=== PATIENT | female | born 1995 | race Hispanic/Latino ===

== ENCOUNTER 2022-02-18 14:45 | Inpatient (IN) | payer OTHER ==
[~2022-02-18] VITALS: Ht 162.6 cm; Wt 77.1 kg
[2022-02-18 17:23] LABS: BASOPHILS % (AUTO) 0.8 % (0.0-5.0); EOSINOPHILS % (AUTO) 1.3 % (0.0-8.0); HEMATOCRIT 40.2 % (36-48); LYMPHOCYTES % (AUTO) 28.4 % (21.0-51.0); MEAN CORPUSCULAR HEMOGLOBIN 25.2 pg (27.0-33.0); MEAN CORPUSCULAR HGB CONC 31.8 g/dL (32.0-36.0); MEAN CORPUSCULAR VOLUME 79.1 fL (79-99); MONOCYTES % (AUTO) 9.8 % (3.0-13.0); NEUTROPHILS % (AUTO) 59.4 % (40.0-77.0); PLATELET COUNT (AUTO) 345 K/uL (130-400); RED BLOOD CELL COUNT(AUTO) 5.08 MIL/uL (4.00-5.50); RED CELL DISTRIBUTION WIDTH 16.7 % (11.0-15.5); WHITE BLOOD COUNT (AUTO) 6.2 K/uL (4.8-10.8)
[2022-02-18 17:24] LABS: APPEARANCE,URINE CLEAR (CLEAR); BILIRUBIN,URINE 0.5 mg/dL (NEGATIVE); COLOR,URINE YELLOW (YELLOW); GLUCOSE, URINE (UA) NEGATIVE (NEGATIVE); KETONES,URINE 10 mg/dL (NEGATIVE); LEUKOCYTE ESTERASE ,URINE 250 Leu/uL (NEGATIVE); NITRATE,URINE NEGATIVE (NEGATIVE); OCCULT BLOOD,URINE LARGE (NEGATIVE); PH,URINE 5.5 (5.0-8.0); PROTEIN,URINE NEGATIVE (NEGATIVE); UROBILINOGEN,URINE 0.2 mg/dL (0.2-1.0)
[2022-02-18 17:27] LABS: HCG,QUALITATIVE URINE NEGATIVE (NEGATIVE)
[2022-02-18 17:28] LABS: CREATININE 0.8 mg/dL (0.5-1.5); POTASSIUM 3.5 mmol/L (3.5-5.1)
[2022-02-18] MEDS ORDERED: ONDANSETRON 4MG INJ IVP ONE (17:30)
[2022-02-18] MEDS ORDERED: MORPHINE 4 MG SYG IVP ONE (17:30)
[2022-02-18] MEDS ORDERED: 0.9%NACL 1000ML 1,000 ML IV ONE (17:30)
[2022-02-18 17:32] LABS: ALBUMIN 4.3 g/dL (3.5-5.0); TOTAL PROTEIN, SERUM 8.6 g/dL (6.0-8.3)
[2022-02-18 17:33] LABS: BACTERIA,URINE RARE /HPF (None Seen); MUCUS,URINE RARE LPF (None Seen); SQUAMOUS EPITHELIAL CELL,UR FEW /HPF (0-2)
[2022-02-18] MEDS ORDERED: IOHEXOL 350 MG/ML 100ML INFUS..BTL IV ONE (18:26)
[2022-02-18] MEDS ORDERED: ONDANSETRON 4MG INJ IV PRN (20:00)
[2022-02-18] MEDS ORDERED: NITROGLYCERIN 0.4 MG SL TAB SL PRN (20:00)
[2022-02-18 20:28] LABS: HEMOGLOBIN A1C 5.1 % (4.0-6.0)
[2022-02-18] MEDS: FAMOTIDINE 20MG VIAL IV SCH (20:29)
[2022-02-18] MEDS: LACTATED RINGERS 1000ML 1,000 ML IV SCH (20:29)
[2022-02-18] MEDS: MORPHINE 2 MG SYG IV PRN (22:37)
[2022-02-18 23:16] VITALS: BP 97/68
[2022-02-18 23:30] LABS: AMPHET/METH SCREEN,URINE NEGATIVE (NEGATIVE); BARBITURATE SCREEN, URINE NEGATIVE (NEGATIVE); BENZODIAZEPINES SCREEN,URINE NEGATIVE (NEGATIVE); CANNABINOID SCREEN,URINE NEGATIVE (NEGATIVE); COCAINE SCREEN,URINE NEGATIVE (NEGATIVE); PHENCYCLIDINE SCREEN,URINE NEGATIVE (NEGATIVE)
[2022-02-19 03:38] LABS: BASOPHILS % (AUTO) 0.5 % (0.0-5.0); HEMATOCRIT 36.9 % (36-48); LYMPHOCYTES % (AUTO) 19.1 % (21.0-51.0); MEAN CORPUSCULAR HEMOGLOBIN 25.3 pg (27.0-33.0); MEAN CORPUSCULAR HGB CONC 31.7 g/dL (32.0-36.0); MEAN CORPUSCULAR VOLUME 79.7 fL (79-99); MONOCYTES % (AUTO) 10.6 % (3.0-13.0); NEUTROPHILS % (AUTO) 68.6 % (40.0-77.0); PLATELET COUNT (AUTO) 267 K/uL (130-400); RED BLOOD CELL COUNT(AUTO) 4.63 MIL/uL (4.00-5.50); RED CELL DISTRIBUTION WIDTH 16.9 % (11.0-15.5)
[2022-02-19] MEDS: CEFTRIAXONE 1G VIAL IVP SCH (03:38)
[2022-02-19 03:53] LABS: INR 0.98 (0.85-1.15); PROTHROMBIN TIME 10.7 SEC (9.6-11.6)
[2022-02-19 04:02] LABS: ALBUMIN 3.3 g/dL (3.5-5.0); CREATININE 0.9 mg/dL (0.5-1.5); TOTAL PROTEIN, SERUM 6.7 g/dL (6.0-8.3)
[2022-02-19 04:17] VITALS: BP 99/56
[2022-02-19] MEDS: MORPHINE 2 MG SYG IV PRN ×2 (05:04→12:44)
[2022-02-19] MEDS: LACTATED RINGERS 1000ML 1,000 ML IV SCH ×2 (05:46→17:34)
[2022-02-19 07:19] VITALS: BP 101/54
[2022-02-19] MEDS: ENOXAPARIN SODIUM 40 MG/0.4 ML SYRINGE SQ SCH (08:43)
[2022-02-19] MEDS: FAMOTIDINE 20MG VIAL IV SCH ×2 (08:43→20:58)
[2022-02-19] MEDS ORDERED: GADOTERATE MEGLUMINE 10 MMOL/20 ML VIAL IV ONE (10:30)
[2022-02-19 11:32] VITALS: BP 101/60
[2022-02-19 16:11] VITALS: BP 97/62
[2022-02-19 19:29] VITALS: BP 95/68
[2022-02-19 23:17] VITALS: BP 100/54
[2022-02-20] VITALS (22 sets, daily range): BP systolic 96–121; BP diastolic 51–77
[2022-02-20] MEDS: LACTATED RINGERS 1000ML 1,000 ML IV SCH ×2 (03:06→18:15)
[2022-02-20] MEDS: CEFTRIAXONE 1G VIAL IVP SCH (03:06)
[2022-02-20 06:18] LABS: ALBUMIN 3.2 g/dL (3.5-5.0); CREATININE 0.7 mg/dL (0.5-1.5); POTASSIUM 3.7 mmol/L (3.5-5.1); TOTAL PROTEIN, SERUM 6.9 g/dL (6.0-8.3)
[2022-02-20 08:15] LABS: HEMATOCRIT 37.1 % (36-48); MEAN CORPUSCULAR HEMOGLOBIN 25.3 pg (27.0-33.0); MEAN CORPUSCULAR HGB CONC 31.5 g/dL (32.0-36.0); MEAN CORPUSCULAR VOLUME 80.1 fL (79-99); RED BLOOD CELL COUNT(AUTO) 4.63 MIL/uL (4.00-5.50); RED CELL DISTRIBUTION WIDTH 16.5 % (11.0-15.5); WHITE BLOOD COUNT (AUTO) 4.9 K/uL (4.8-10.8)
[2022-02-20] MEDS: FAMOTIDINE 20MG VIAL IV SCH ×2 (09:05→20:49)
[2022-02-20] MEDS: ENOXAPARIN SODIUM 40 MG/0.4 ML SYRINGE SQ SCH (09:06)
[2022-02-20] MEDS ORDERED: FENTANYL CITRATE PF 50 MCG/1 ML 2ML VIAL ONE (10:52)
[2022-02-20] MEDS ORDERED: LIDOCAINE PF 100MG/5ML (2%) SYRINGE 5ML ONE ×2 (10:52→11:24)
[2022-02-20] MEDS ORDERED: SUCCINYLCHOLINE 200MG/10ML SYR ONE (10:52)
[2022-02-20] MEDS ORDERED: PROPOFOL 10 MG/ML 20ML VIAL IV ONE (10:52)
[2022-02-20] MEDS ORDERED: MIDAZOLAM HCL 1 MG/ML 2ML VIAL ONE (11:28)
[2022-02-20] MEDS ORDERED: ROCURONIUM 10MG/1ML SYR 10 MG/ML ML ONE (11:31)
[2022-02-20] MEDS ORDERED: IOHEXOL 350 MG/ML 100ML INFUS..BTL IV ONE (12:05)
[2022-02-20] MEDS ORDERED: HYDROMORPHONE 1 MG INJ IVP PRN (16:30)
[2022-02-20] MEDS: ZOSYN 3.375GM +NS 50ML IV SCH (18:10)
[2022-02-21] MEDS: CEFTRIAXONE 1G VIAL IVP SCH (02:21)
[2022-02-21] MEDS: ZOSYN 3.375GM +NS 50ML IV SCH ×3 (02:28→17:57)
[2022-02-21] MEDS: LACTATED RINGERS 1000ML 1,000 ML IV SCH ×2 (03:42→15:30)
[2022-02-21 04:05] VITALS: BP 134/80
[2022-02-21 04:22] LABS: HEMATOCRIT 33.7 % (36-48); MEAN CORPUSCULAR HEMOGLOBIN 25.3 pg (27.0-33.0); MEAN CORPUSCULAR HGB CONC 32.3 g/dL (32.0-36.0); MEAN CORPUSCULAR VOLUME 78.4 fL (79-99); RED BLOOD CELL COUNT(AUTO) 4.3 MIL/uL (4.00-5.50); WHITE BLOOD COUNT (AUTO) 3.9 K/uL (4.8-10.8)
[2022-02-21 04:56] LABS: ALBUMIN 3.1 g/dL (3.5-5.0); CREATININE 0.8 mg/dL (0.5-1.5); POTASSIUM 3.8 mmol/L (3.5-5.1); TOTAL PROTEIN, SERUM 6.7 g/dL (6.0-8.3)
[2022-02-21 07:09] VITALS: BP 103/73
[2022-02-21] MEDS: ENOXAPARIN SODIUM 40 MG/0.4 ML SYRINGE SQ SCH (08:31)
[2022-02-21] MEDS: FAMOTIDINE 20MG VIAL IV SCH ×2 (08:31→21:17)
[2022-02-21 11:00] VITALS: BP 98/63
[2022-02-21 16:54] VITALS: BP 108/73
[2022-02-21 19:38] VITALS: BP 119/66
[2022-02-21 22:38] VITALS: BP 104/65
[2022-02-22] VITALS (26 sets, daily range): BP systolic 98–129; BP diastolic 52–81
[2022-02-22] MEDS: ZOSYN 3.375GM +NS 50ML IV SCH ×3 (01:55→17:29)
[2022-02-22] MEDS: LACTATED RINGERS 1000ML 1,000 ML IV SCH ×3 (01:56→22:07)
[2022-02-22 04:31] LABS: HEMATOCRIT 34.4 % (36-48); MEAN CORPUSCULAR HGB CONC 32.6 g/dL (32.0-36.0); MEAN CORPUSCULAR VOLUME 79.8 fL (79-99); RED BLOOD CELL COUNT(AUTO) 4.31 MIL/uL (4.00-5.50); RED CELL DISTRIBUTION WIDTH 16.3 % (11.0-15.5); WHITE BLOOD COUNT (AUTO) 3.9 K/uL (4.8-10.8)
[2022-02-22 04:54] LABS: ALBUMIN 3.1 g/dL (3.5-5.0); CREATININE 0.8 mg/dL (0.5-1.5); POTASSIUM 3.6 mmol/L (3.5-5.1); TOTAL PROTEIN, SERUM 6.6 g/dL (6.0-8.3)
[2022-02-22] MEDS ORDERED: BUPIVACAINE/PF 0.25% 30ML VIAL IJ ONE (07:49)
[2022-02-22] MEDS ORDERED: BUPIVACAINE/EPI/PF 0.25% 10ML VIAL IJ ONE (07:50)
[2022-02-22] MEDS: FAMOTIDINE 20MG VIAL IV SCH ×2 (08:52→21:27)
[2022-02-22] MEDS: ENOXAPARIN SODIUM 40 MG/0.4 ML SYRINGE SQ SCH (09:00)
[2022-02-22] MEDS ORDERED: ONDANSETRON 4MG INJ ONE ×2 (09:02→12:05)
[2022-02-22] MEDS ORDERED: LIDOCAINE PF 100MG/5ML (2%) SYRINGE 5ML ONE (09:02)
[2022-02-22] MEDS ORDERED: DEXAMETHASONE SOD PHOSPHATE 10MG/ML 1ML VIAL ONE (09:02)
[2022-02-22] MEDS ORDERED: SUCCINYLCHOLINE 200MG/10ML SYR ONE (09:02)
[2022-02-22] MEDS ORDERED: GLYCOPYRROLATE 1 MG/5 ML SYRINGE ONE (09:02)
[2022-02-22] MEDS ORDERED: PROPOFOL 10 MG/ML 20ML VIAL IV ONE (09:03)
[2022-02-22] MEDS ORDERED: MIDAZOLAM HCL 1 MG/ML 2ML VIAL ONE (09:03)
[2022-02-22] MEDS ORDERED: NEOSTIGMINE 5MG/5ML SYR IV ONE (09:03)
[2022-02-22] MEDS ORDERED: ROCURONIUM 10MG/1ML SYR 10 MG/ML ML ONE (09:04)
[2022-02-22] MEDS ORDERED: FENTANYL CITRATE PF 50 MCG/1 ML 2ML VIAL ONE ×2 (09:04→10:38)
[2022-02-22] MEDS ORDERED: MEPERIDINE-PF 25 MG/ML SYG ONE ×3 (11:16→12:25)
[2022-02-22] MEDS ORDERED: BUPIVACAINE/EPI/PF 0.25% 50 ML VIAL IJ ONE (11:30)
[2022-02-22] MEDS: OXYCODONE/ACETAMIN 5/325MG TAB PO PRN (14:48)
[2022-02-23] MEDS: ZOSYN 3.375GM +NS 50ML IV SCH ×2 (02:01→10:16)
[2022-02-23 03:51] VITALS: BP 108/69
[2022-02-23 03:52] LABS: HEMATOCRIT 35.2 % (36-48); MEAN CORPUSCULAR HGB CONC 32.4 g/dL (32.0-36.0); MEAN CORPUSCULAR VOLUME 80.2 fL (79-99); RED BLOOD CELL COUNT(AUTO) 4.39 MIL/uL (4.00-5.50); RED CELL DISTRIBUTION WIDTH 16.2 % (11.0-15.5); WHITE BLOOD COUNT (AUTO) 6.8 K/uL (4.8-10.8)
[2022-02-23 04:12] LABS: ALBUMIN 3.3 g/dL (3.5-5.0); CREATININE 0.8 mg/dL (0.5-1.5); POTASSIUM 3.7 mmol/L (3.5-5.1); TOTAL PROTEIN, SERUM 6.8 g/dL (6.0-8.3)
[2022-02-23] MEDS: OXYCODONE/ACETAMIN 5/325MG TAB PO PRN (04:31)
[2022-02-23 07:55] VITALS: BP 102/63
[2022-02-23] MEDS: LACTATED RINGERS 1000ML 1,000 ML IV SCH (08:07)
[2022-02-23] MEDS: FAMOTIDINE 20MG VIAL IV SCH (08:07)
[2022-02-23] MEDS: ENOXAPARIN SODIUM 40 MG/0.4 ML SYRINGE SQ SCH (08:08)
[2022-02-23] MEDS ORDERED: LACTULOSE 20 GM/30 ML UDCUP PO PRN (09:30)
[2022-02-23] MEDS ORDERED: DOCUSATE SODIUM 100 MG CAP PO SCH ×2 (09:30)
[2022-02-23] MEDS ORDERED: SIMETHICONE 80 MG TAB.CHEW PO PRN (09:30)
[2022-02-23 11:20] VITALS: BP 95/54
== END 2022-02-23 15:55 | disposition home or self-care (01) | DRG 417 ==
LOC: EDH 14:45 → EDHIP 19:51 → WSH 22:51
PROVIDERS: ADMIT Hospitalist; ATTEND Hospitalist
PROC: 0FJB8ZZ Inspection of Hepatobiliary Duct, Via Natural or Artificial Opening Endoscopic (ICD-10-PCS; 2022-02-20)
PROC: 8E0W4CZ Robotic Assisted Procedure of Trunk Region, Percutaneous Endoscopic Approach (ICD-10-PCS; 2022-02-22)
PROC: 0FT44ZZ Resection of Gallbladder, Percutaneous Endoscopic Approach (ICD-10-PCS; principal; 2022-02-22 10:10)
DX: K80.70 Calculus of gallbladder and bile duct without cholecystitis without obstruction (principal); K85.90 Acute pancreatitis without necrosis or infection, unspecified; N39.0 Urinary tract infection, site not specified; Z20.822 Contact with and (suspected) exposure to COVID-19; E78.2 Mixed hyperlipidemia
CPT/HCPCS: 36415; 43262; 43264; 74177; 74183; 74328; 74330; 80053; 80061; 80305; 81001; 81025; 82150; 83036; 83690; 83735; 85025; 85027; 85610; 85730; 87040; 87088; 87635; 93005; A4606; C1769; C1773; G0378; J0330; J0696; J1100; J1650; J2001; J2175; J2250; J2270; J2405; J2543; J2704; J2710; J3010; J3490; J7030; J7120; Q9967